=== PATIENT | female | born 2000 | race Caucasian/White ===

== ENCOUNTER 2020-10-02 07:18 | Inpatient (IN) | payer OTHER ==
[~2020-10-02] VITALS: Ht 152.4 cm; Wt 159.2 kg
[~2020-10-02 07:18] MED LIST: CEFUROXIME500 MG PO; IBUPROFEN600 MG PO; PYRIDIUM100 MG PO; PYRIDIUM200 MG PO; ZOFRAN ODT 4 MG4 MG PO
[2020-10-02 08:06] LABS: HEMOGLOBIN 13.2 gm/dl (12.3-15.3); RED BLOOD COUNT 4.31 M/UL (4.00-5.10); WHITE BLOOD COUNT 20.4 K/UL (4.5-11.0)
[2020-10-02] MEDS ORDERED: PRENATABS FA T1 EACH PO (08:33)
[2020-10-02] MEDS ORDERED: HYDROCODON-ACE1 EAC6 PO (11:01)
[2020-10-02] MEDS ORDERED: IBUPROFEN600 MG PO (11:01)
[2020-10-02] MEDS ORDERED: COLACE 100MG C100 MG PO (11:01)
[2020-10-03 06:09] LABS: HEMOGLOBIN 12.1 gm/dl (12.3-15.3)
== END 2020-10-04 17:47 | disposition home or self-care (01) | DRG 788 ==
LOC: OB 07:18
PROVIDERS: ADMIT Obstetrics & Gynecology
PROC: 3E0234Z Introduction of Serum, Toxoid and Vaccine into Muscle, Percutaneous Approach (ICD-10-PCS; 2020-10-02)
PROC: 10D00Z1 Extraction of Products of Conception, Low, Open Approach (ICD-10-PCS; principal; 2020-10-02 07:30)
DX: O99.214 Obesity complicating childbirth (principal); Z3A.39 39 weeks gestation of pregnancy; Z37.0 Single live birth; Z23 Encounter for immunization
CPT/HCPCS: 36415; 81001; 82800; 85014; 85018; 85025; 85461; 86850; 86900; 86901; 90471; 90686; 90715; C9113; G0008; J0690; J1650; J1885; J2274; J2405; J2590; J2790; J3010; J7120

== ENCOUNTER 2021-09-07 21:06 | Emergency (ER) | payer SELFPAY ==
[~2021-09-07 21:06] MED LIST changes: +COLACE 100MG C100 MG PO; +HYDROCODON-ACE1 EAC6 PO; +PRENATABS FA T1 EACH PO
[2021-09-07 21:58] LABS: HEMOGLOBIN 13.6 gm/dl (12.3-15.3); RED BLOOD COUNT 4.89 M/UL (4.00-5.10); WHITE BLOOD COUNT 15.1 K/UL (4.5-11.0)
[2021-09-07 22:20] LABS: BUN/CREATININE RATIO 18 (0-10)
== END 2021-09-08 02:20 | disposition home or self-care (01) ==
LOC: ER1 21:06
PROVIDERS: Physician Assistant
DX: R10.32 Left lower quadrant pain (principal); F17.210 Nicotine dependence, cigarettes, uncomplicated; R10.814 Left lower quadrant abdominal tenderness; Z20.822 Contact with and (suspected) exposure to COVID-19
CPT/HCPCS: 0240U; 80053; 81001; 83690; 84703; 85025; 87077; 87081; 87086; 87186; 87880; 99284; Q9967